=== PATIENT | female | born 1965 | race Caucasian/White ===

== ENCOUNTER → 2019-11-22 08:58 | Outpatient (CLI) | payer MEDICAID ==
--- NOTE | ~2019-11-22 | ST ---
PATIENT:ADAM VIDAL MEDICAL RECORD: [id number] SEX: F LOCATION:[facility] ORDER #: ADMISSION DATE: 11/22/19 AGE OF PATIENT: 54 REFERRING PHYSICIAN: INTERPRETING PHYSICIAN: JACOB PUGH MD DATE OF SERVICE: 11/22/2019 PROCEDURE: Treadmill stress test. TECHNIQUE: Bassline ECG is normal. Exercise for 6 minutes and 20 seconds on Alejandro protocol. Maximum heart rate 152 beats per minute, greater than 85% maximum predicted. No ECG changes for ischemia. No symptoms of ischemia. Normal blood pressure response to exercise. No arrhythmias noted. Fair exercise tolerance for age. TRANSINT:[id number] Voice Confirmation ID: [id number] DOCUMENT ID: [id number] JACOB PUGH MD CC: [id number] DICTATION DATE: 11/25/19 1325 CONTRACT NEGOTIATION SPECIALIST: 11/25/19 1734 DEP CLI 11/22/19 [id number] [place] [address]
--- NOTE | ~2019-11-22 | EC ---
PATIENT:ADAM VIDAL DATE OF SERVICE: 11/22/19 SEX: F MEDICAL RECORD: [id number] DATE OF : 67 [facility] AGE OF PATIENT: 54 ADMISSION DATE: 11/22/19 REFERRING PHYSICIAN: INTERPRETING PHYSICIAN: JACOB PUGH MD ECHOCARDIOGRAM REPORT ECHO CHARGES 4 ECHO COMPLETE Date: 11/22/19 CLINICAL DIAGNOSIS: HTN ECHOCARDIOGRAPHIC MEASUREMENTS (adult normal given) AC root (d.<3.7cm) 3.9 cm LV Septum d (<1.2 cm> 1.1 cm Valve Excursion 1.3 cm LV Septum (systole) 1.3 cm Left Atria (s.<4.0cm> 4.0 cm LVPW d(<1.2cm) 1.3 cm RV (d.<2.3cm) 3.7 cm LVPW (sytole) 1.6 cm LV diastole(<5.6CM) 4.4 cm MV E-F(>70mm/sec) cm LV systole 2.7 cm LVOT Diameter 1.7 cm MV exc.(>10mm) 1.4 cm Est.ejection fraction (50-75%) % DOPPLER: LVIT cm/sec A 61.0 cm/sec E 70.0 cm/sec LA cm/sec RVSP 41 mmHg LVOT 80 cm/sec AOP1/2T m/s Asc. Ao 102 cm/sec RVOT 63 cm/sec RA cm/sec PA 80 cm/sec AV Gradient Peak 4.15 mmHg AV Mean 1.96 mmHg AV Area 2.0 cm MV Gradient Peak 3.41 mmHg MV Mean 1.25 mmHg MV Area cm COMMENTS: Air Intercept Controller: 2 SANDI DUARTE Line Erector: 3 Dr. Early TAPE# PACS Pericardial Effusion N DATE OF SERVICE: Adequate 2D, color flow imaging, spectral Doppler, and M-mode. No LVH. LV internal dimensions are normal. Wall motion is normal. EF is greater than or equal to 55%. Aortic valve is tricuspid. No evidence of stenosis by Doppler interrogation. Left atrium is upper limits of normal at 4.1 cm. Mitral valve shows no prolapse. Trace MR. Right-sided chambers grossly normal. Mild TR. ECHOCARDIOGRAM REPORT [id number] ADAM VIDAL TRANSINT:[id number] Voice Confirmation ID: [id number] DOCUMENT ID: [id number] JACOB PUGH MD CC: [id number] DICTATION DATE: 11/25/19 1512 MARINE EQUIPMENT ENGINEER: 11/25/19 1828 DEP CLI 11/22/19 [id number] [place] [id number]
== END | disposition home or self-care (01) ==
LOC: D.HCCECHO 11-18 14:30
PROVIDERS: ATTEND Internal Medicine Interventional Cardiology
DX: I10 Essential (primary) hypertension (principal); I20.9 Angina pectoris, unspecified

== ENCOUNTER 2020-06-27 12:58 | Emergency (ER) | payer MEDICAID ==
[~2020-06-27] VITALS: Ht 167.6 cm; Wt 60.0 kg
[2020-06-27] MEDS ORDERED: PROTONIX20 MG PO (13:12)
[2020-06-27] MEDS ORDERED: LIPITOR80 MG PO (13:12)
[2020-06-27] MEDS ORDERED: LISINOPRIL-HCT1 EAC7 PO (13:12)
[2020-06-27] MEDS ORDERED: VOLTAREN75 MG PO ×2 (13:13→14:36)
[2020-06-27] MEDS ORDERED: NEURONTIN600 MG PO ×2 (13:13)
[2020-06-27] MEDS ORDERED: BACLOFEN10 MG PO (13:13)
[2020-06-27] MEDS ORDERED: HYDROCODON-ACE1 EA10 PO (13:13)
[2020-06-27] MEDS ORDERED: IBUPROFEN800 MG PO (13:14)
[2020-06-27] MEDS ORDERED: CYCLOBENZAPRINE10 MG PO (14:36)
[2020-06-27] MEDS ORDERED: PREDNISONE50 MG PO (14:36)
== END 2020-06-27 15:22 | disposition home or self-care (01) ==
LOC: D.ER 12:58
DX: R07.89 Other chest pain (principal); M94.0 Chondrocostal junction syndrome [Tietze]; K21.9 Gastro-esophageal reflux disease without esophagitis; I10 Essential (primary) hypertension; Z72.0 Tobacco use

== ENCOUNTER 2021-04-12 10:18 | Emergency (ER) | payer BC ==
[~2021-04-12] VITALS: Ht 167.6 cm; Wt 56.4 kg
[~2021-04-12 10:18] MED LIST: BACLOFEN10 MG PO; CYCLOBENZAPRINE10 MG PO; HYDROCODON-ACE1 EA10 PO; IBUPROFEN800 MG PO; LIPITOR80 MG PO; LISINOPRIL-HCT1 EAC7 PO; NEURONTIN600 MG PO; PREDNISONE50 MG PO; PROTONIX20 MG PO; VOLTAREN75 MG PO
[2021-04-12 10:23] VITALS: BP 131/86; Ht 167.6 cm; Wt 56.4 kg
[2021-04-12] MEDS ORDERED: CYANOCOBAL1000 MCG/4 SC (10:31)
[2021-04-12 11:51] LABS: CALC OSMOLALITY 274 mosm/kg (275-300); CALCIUM 9.2 mg/dL (8.5-10.1); CARBON DIOXIDE 26.4 mmol/L (21.0-32.0); CHLORIDE - SERUM 103 mmol/L (98-107); CREATININE - SERUM 0.7 mg/dL (0.6-1.3); GLUCOSE 92 mg/dL (74-106); POTASSIUM - SERUM 4.1 mmol/L (3.5-5.1); SODIUM 138 mmol/L (136-145); UREA NITROGEN 11 mg/dL (7-18); eGFR NON AFRICAN AMERICAN > 90 mL/min (90-120)
[2021-04-12 12:02] LABS: ALBUMIN 3.9 g/dL (3.4-5.0); ALKALINE PHOSPHATASE 53 U/L (30-120); ALT (SGPT) 21 U/L (10-68); PROTEIN - SERUM 6.4 g/dL (6.4-8.2)
[2021-04-12 12:16] LABS: BASOPHILS 0.5 % (0-2); EOSINOPHILS 3.5 % (0-7); HEMATOCRIT 40.5 % (36.0-48.0); HEMOGLOBIN 13.5 g/dL (12-16); LYMPHOCYTES 27.6 % (15-50); MCH 32.8 pg (26.0-34.0); MCHC 33.4 g/dL (31.0-37.0); MCV 98.4 fL (80.0-100.0); MEAN PLATELET VOLUME 8.4 fL (7.4-10.4); MONOCYTES 5.5 % (2-11); NEUTROPHILS 62.9 % (40-80); PLATELET COUNT 293 10x3/uL (130-400); RBC 4.12 10x6/uL (4.00-5.40); RDW 13.6 % (11.5-14.5); WBC 9.1 10x3/uL (4.8-10.8)
== END 2021-04-12 12:50 | disposition home or self-care (01) ==
LOC: D.ER 10:18
PROVIDERS: Emergency Medicine
DX: R14.0 Abdominal distension (gaseous) (principal); I10 Essential (primary) hypertension; E78.00 Pure hypercholesterolemia, unspecified; K21.9 Gastro-esophageal reflux disease without esophagitis; Z72.0 Tobacco use; R06.02 Shortness of breath

== ENCOUNTER 2021-04-17 20:36 | Inpatient (IN) | payer BC ==
[~2021-04-17] VITALS: Ht 167.6 cm; Wt 55.9 kg
[~2021-04-17 20:36] MED LIST changes: +CYANOCOBAL1000 MCG/4 SC
[2021-04-17 23:15] LABS: BASOPHILS 0.8 % (0-2); EOSINOPHILS 5.8 % (0-7); HEMATOCRIT 40.5 % (36.0-48.0); HEMOGLOBIN 13.6 g/dL (12-16); MCH 33.1 pg (26.0-34.0); MCHC 33.6 g/dL (31.0-37.0); MCV 98.4 fL (80.0-100.0); MEAN PLATELET VOLUME 8.3 fL (7.4-10.4); MONOCYTES 5.3 % (2-11); NEUTROPHILS 49.1 % (40-80); PLATELET COUNT 334 10x3/uL (130-400); RBC 4.12 10x6/uL (4.00-5.40); RDW 13.4 % (11.5-14.5); WBC 9.1 10x3/uL (4.8-10.8)
[2021-04-17 23:29] LABS: INR 1.04 (0.85-1.17); PROTIME 12.6 SECONDS (11.6-15.0)
[2021-04-17 23:33] LABS: CALC OSMOLALITY 269 mosm/kg (275-300); CALCIUM 9.5 mg/dL (8.5-10.1); CARBON DIOXIDE 29.3 mmol/L (21.0-32.0); CHLORIDE - SERUM 101 mmol/L (98-107); CREATININE - SERUM 0.7 mg/dL (0.6-1.3); GLUCOSE 87 mg/dL (74-106); POTASSIUM - SERUM 3.8 mmol/L (3.5-5.1); SODIUM 136 mmol/L (136-145); UREA NITROGEN 11 mg/dL (7-18); eGFR NON AFRICAN AMERICAN > 90 mL/min (90-120)
[2021-04-17 23:49] LABS: ALBUMIN 4.1 g/dL (3.4-5.0); ALKALINE PHOSPHATASE 59 U/L (30-120); ALT (SGPT) 23 U/L (10-68); BILIRUBIN - TOTAL 0.39 mg/dL (0.2-1.3); CKMB 0.4 U/L (0.0-3.6); CREATINE KINASE 34 UL (21-215); PROTEIN - SERUM 7.4 g/dL (6.4-8.2); TROPONIN-I 0.016 ng/mL (0.000-0.060)
[2021-04-18 00:57] VITALS: BP 99/62; BMI 19.9
[2021-04-18 06:30] VITALS: BP 102/62
[2021-04-18 08:05] LABS: BASOPHILS 0.8 % (0-2); EOSINOPHILS 7.3 % (0-7); HEMATOCRIT 39.2 % (36.0-48.0); HEMOGLOBIN 13.3 g/dL (12-16); LYMPHOCYTES 39.3 % (15-50); MCH 33.2 pg (26.0-34.0); MCHC 33.8 g/dL (31.0-37.0); MCV 98.4 fL (80.0-100.0); MEAN PLATELET VOLUME 8.3 fL (7.4-10.4); MONOCYTES 6.1 % (2-11); NEUTROPHILS 46.5 % (40-80); PLATELET COUNT 300 10x3/uL (130-400); RBC 3.99 10x6/uL (4.00-5.40); RDW 13.5 % (11.5-14.5); WBC 7.3 10x3/uL (4.8-10.8)
[2021-04-18 08:08] LABS: CALC OSMOLALITY 276 mosm/kg (275-300); CALCIUM 9.3 mg/dL (8.5-10.1); CARBON DIOXIDE 28.1 mmol/L (21.0-32.0); CHLORIDE - SERUM 104 mmol/L (98-107); CREATININE - SERUM 0.7 mg/dL (0.6-1.3); GLUCOSE 85 mg/dL (74-106); MAGNESIUM - SERUM 2.1 mg/dL (1.8-2.4); PHOSPHOROUS 4.7 mg/dL (2.5-4.9); POTASSIUM - SERUM 3.9 mmol/L (3.5-5.1); SODIUM 140 mmol/L (136-145); UREA NITROGEN 10 mg/dL (7-18); eGFR NON AFRICAN AMERICAN > 90 mL/min (90-120)
[2021-04-18 09:19] VITALS: BP 96/58
--- NOTE | 2021-04-18 11:54 | NUR ---
4MG OF MORPHINE GIVEN FOR PAIN LEVEL OF 8/10, ALL NEEDS MET, CALL LIGHT IN REACH.
[2021-04-18 12:28] VITALS: BP 97/61
[2021-04-18 16:11] VITALS: BP 92/60
[2021-04-18 19:25] VITALS: Ht 167.6 cm; Wt 55.9 kg
[2021-04-18 19:59] VITALS: BP 90/54
[2021-04-19 00:33] VITALS: BP 91/57
[2021-04-19 05:26] VITALS: BP 99/59
--- NOTE | 2021-04-19 07:00 | NUR ---
RECEIVED REPORT. ASSUMED CARE OF PATIENT. SITTING UP IN BED WITH EYES OPEN, NO DISTRESS. CALL LIGHT WITHIN REACH. WHITE BOARD UPDATED, BEDSIDE SHIFT REPORT COMPLETE.
--- NOTE | 2021-04-19 07:30 | NUR ---
CONSENTS SIGNED AND PLACED ON CHART.
--- NOTE | 2021-04-19 07:36 | NUR ---
MEDICATED FOR PAIN AT THIS TIME. NO DISTRESS.
[2021-04-19 09:00] VITALS: BP 93/64
--- NOTE | 2021-04-19 10:36 | NUR ---
NOTIFIED BY THE SURGERY NURSE WHO CAME TO GET PATIENT FOR HER EGD THAT PATIENT CAN NOW EAT AND DRINK, PATIENT HAS QUESTIONS THAT SHE WOULD LIKE TO ANSWER AND SINCE HE HAS A GI BLOCK SET ASIDE FOR TOMORROW, THEY WILL MOVE PATIENT TO TOMORROWS SCHEDULE.
--- NOTE | 2021-04-19 15:25 | NUR ---
ENEMA ADMINISTERED AND TOLERATED WELL AT THIS TIME.
[2021-04-19 20:25] VITALS: BP 110/69
--- NOTE | 2021-04-19 22:00 | NUR ---
REPORT RECEIVED. PT A&O, UP IN BED WATCHING TV. NO S/S OF DISTRESS OBSERVED. RR EVEN & UNLABORED ON RA. R AC IV INFUSING NS @ 75CC/HR. SB 55 ON TELE. EGD ORDERS FOR TOMORROW RECEIVED. OBTAINED CONSENTS. EDUCATED PT ABOUT NPO AFTER MN. BED LOCKED AND LOWERED, CL IN REACH. ASSESSMENT COMPLETE. WILL CONT POC.
[2021-04-20] VITALS (7 sets, daily range): BP systolic 85–118; BP diastolic 41–96
--- NOTE | 2021-04-20 08:00 | NUR ---
PT RECEIVED AWAKE AND ALERT IN BED. NPO FOR GI TODAY. COMPLAINS OF IV HURTING. SALINE LOCKED IT AND ASSESSED FOR PATENCY. STILL PATENT BUT LEAKING SO REMOVED AND NEW ONE STARTED TO RIGHT WRIST.
--- NOTE | 2021-04-20 10:37 | NUR ---
COMPLAINT OF PAIN, MEDICATED WITH MS AND ZOFRAN.
--- NOTE | 2021-04-20 12:21 | NUR ---
PT BACK FROM GI LAB. AWAKE AND ALERT, NO COMPLAINTS BUT ASKING FOR COFFEE.
--- NOTE | 2021-04-20 21:09 | HP ---
PATIENT: ADAM FLETCHER MEDICAL RECORD: [id number] ACCOUNT: [id number] LOCATION:[address] : 67 ADMISSION DATE: 04/18/21 PCP: No PCP HISTORY AND PHYSICAL EXAMINATION DATE ASSIGNED TO OBSERVATION: 04/17/2021 HISTORY OF PRESENT ILLNESS: A 55-year-old white female followed by Dr. Wick, has been diagnosed with a diaphragmatic hernia. She was referred to Dr. Rubin for this. She saw Dr. Rubin's GLAZE HANDLER earlier this week for abdominal pain and the patient is "waiting on a surgery date." Her pain is crampy and intermittent in the upper abdomen. She came to the ER because she was told that if her pain got worst to come in and be seen. In the ER, the lab work is all stable. Chest x-ray is read as no acute cardiopulmonary process. There was no mention made of a diaphragmatic hernia. Review of her chart showed a CT of the abdomen and pelvis without contrast done on 04/12/2021, showed emphysema in the lung bases and diffuse ground-glass attenuation, but no consolidation seen. There was no mention made in of diaphragmatic hernia. She is here for continued abdominal pain. PAST MEDICAL HISTORY: COPD, hypertension, reflux, hyperlipidemia, chronic rib pain, and chronic nicotine dependence. PAST SURGICAL HISTORY: Repair of an ulnar nerve entrapment. ALLERGIES: REPORTEDLY TO NAPROXEN. HOME MEDICATIONS: [place] 10 up to t.i.d. p.r.n. pain in her rib, atorvastatin 40 mg a day, tizanidine 4 mg p.r.n. pain, diclofenac 75 mg twice a day, lisinopril with HCT 20/12.5 one a day, gabapentin 600 mg b.i.d., Protonix 40 mg once a day, Flonase 2 sprays each nostril daily, B12 shot weekly, Advair 100/50 one inhalation twice a day, DuoNeb nebulizer q.4-6 hours p.r.n. wheeze. HABITS: She continues to smoke. Denies alcohol or drug use. SOCIAL HISTORY: She is not . FAMILY HISTORY: Father around age 79 of heart issues. Mother is alive; she has hypertension, heart issues. REVIEW OF SYSTEMS: GENERAL: No major weight changes. HEENT: No particular sinus or allergy problems. RESPIRATORY: She has COPD and continues to smoke. CARDIAC: No history of heart trouble. GASTROINTESTINAL: She has reflux. GENITOURINARY: No significant problems there. MUSCULOSKELETAL: She has chronic rib pains and takes hydrocodone t.i.d. NEUROLOGIC: No seizures or headaches. PSYCHIATRIC: Denies depression or melancholia. PHYSICAL EXAMINATION: VITAL SIGNS: Temperature 97.9, pulse 63, respirations 16, blood pressure is 97/61, O2 sat 98%. GENERAL: She is sitting up in bed. She is awake and alert. She ate lunch. HISTORY AND PHYSICAL [id number] ADAM FLETCHER HEENT: Grossly within normal limits. NECK: Supple. HEART: Regular rate and rhythm. LUNGS: Fairly clear. ABDOMEN: Some generalized upper abdominal tenderness. No guarding, no rebound, no mass. EXTREMITIES: No edema. LABORATORY DATA: CBC with a white count of 7300, hemoglobin 13.3, hematocrit 39, platelets are normal at 300. Basic metabolic panel: Sodium 140, potassium 3.9, chloride 104, CO2 28.1, BUN 10, creatinine 0.7, glucose 85, calcium 9.3. Liver functions all okay. Troponin 0.016. DIAGNOSTIC DATA: Chest x-ray report is reviewed and said that the lungs are clear with no focal consolidation, pneumothoraces, or large pleural effusions. The cardiomediastinal silhouette is normal. There are some bilateral calcified pulmonary granulomata and degenerative changes of the spine. There is no acute cardiopulmonary process seen. ASSESSMENT: 1. Upper abdominal pain. 2. History of diaphragmatic hernia on the left. PLAN: Dr. Rubin has been consulted. Other tests or procedures as warranted. TRANSINT:[id number] Voice Confirmation ID: [id number] DOCUMENT ID: [id number] YARIEL URIAS MD at 2109 CC: [id number] DICTATION DATE: 04/18/21 1308 HAND II TUBE BENDER: 04/18/21 1336 ADM IN [address] [id number] [place] [address]
--- NOTE | 2021-04-20 21:58 | NUR ---
REPORT RECEIVED. PT A&O, UP IN BED WATCHING TV. NO S/S OF DISTRESS OBSERVED. RR EVEN AND UNLABORED ON RA. SR 60 ON TELE. R WRIST IV WAS INFILTRATED. RESITED IV TO L FA PATENT, SL, SWAB CAPS IN USE. PT REPORTS HAVING A BM THIS MORNING. BED LOCKED AND LOWERED, CL IN REACH. ASSESSMENT COMPLETE. WILL CONT POC.
[2021-04-21] VITALS: BP 111/70
[2021-04-21 04:00] VITALS: BP 97/52
--- NOTE | 2021-04-21 07:00 | NUR ---
Sitting up in bed, awake/alert/oriented, T/R self ad ryan, cont of B/B with BRPs per self ad ryan, denies pain/other discomfort at this time, call light/phone/water within reach, no s/s of acute distress observed.
[2021-04-21 08:00] VITALS: BP 96/63
[2021-04-21 11:50] VITALS: BP 117/57
--- NOTE | 2021-04-21 15:07 | NUR ---
Provided written/verbal discharge instructions/education to which pt stated understanding, discontinued IV access, no s/s of acute distress observed.
--- NOTE | 2021-04-21 15:10 | NUR ---
Discharged home to self care in stable condition via w/c accompanied by hospital staff and family member, no s/s of acute distress observed.
== END 2021-04-21 15:10 | disposition home or self-care (01) | DRG 395 ==
LOC: D.ER 20:36 → D.EDHOLD 21:48 → OBSVTIME 21:48 → D.M2 23:20
PROVIDERS: Family Medicine; Surgery; ADMIT Family Medicine; ATTEND Family Medicine
PROC: 0DB68ZZ Excision of Stomach, Via Natural or Artificial Opening Endoscopic (ICD-10-PCS; principal; 2021-04-20 12:00)
DX: K31.7 Polyp of stomach and duodenum (principal); K59.00 Constipation, unspecified; K44.9 Diaphragmatic hernia without obstruction or gangrene; J44.9 Chronic obstructive pulmonary disease, unspecified; I10 Essential (primary) hypertension; K21.9 Gastro-esophageal reflux disease without esophagitis; E78.5 Hyperlipidemia, unspecified; F17.200 Nicotine dependence, unspecified, uncomplicated

== ENCOUNTER → 2021-05-05 07:30 | Outpatient (CLI) | payer BC ==
[2021-04-18 19:25] VITALS: BMI 19.9
== END | disposition home or self-care (01) ==
LOC: D.NM 07:30
PROVIDERS: ATTEND Family Medicine
DX: R10.10 Upper abdominal pain, unspecified (principal)